=== PATIENT | female | born 1940 | race Caucasian/White ===

== ENCOUNTER 2019-04-26 13:14 | Emergency (ER) | payer MEDICARE, BC ==
[~2019-04-26] VITALS: Ht 152.4 cm; Wt 57.1 kg
[2019-04-26] MEDS ORDERED: METFORMIN HCL500 MG PO (13:30)
[2019-04-26] MEDS ORDERED: IRON325 PO (13:30)
[2019-04-26] MEDS ORDERED: PREVAGEN PO (13:31)
[2019-04-26] MEDS ORDERED: IBUPROFEN 800800 M1 PO (15:19)
[2019-04-26] MEDS ORDERED: NORCO 5-325 TA1 EAC1 PO (15:19)
[2019-04-26 15:47] VITALS: BP 139/72
== END 2019-04-26 15:51 | disposition left against medical advice (07) ==
LOC: M.ERS 13:14
DX: S22.41XA Multiple fractures of ribs, right side, initial encounter for closed fracture (principal); J93.9 Pneumothorax, unspecified; F17.200 Nicotine dependence, unspecified, uncomplicated; E11.9 Type 2 diabetes mellitus without complications; Z90.710 Acquired absence of both cervix and uterus; Z90.12 Acquired absence of left breast and nipple; W01.0XXA Fall on same level from slipping, tripping and stumbling without subsequent striking against object, initial encounter; Y92.89 Other specified places as the place of occurrence of the external cause; Y93.89 Activity, other specified; Y99.8 Other external cause status